=== PATIENT | male | born 1980 | race Caucasian/White ===

== ENCOUNTER 2018-02-09 | Emergency (ER) | payer BC ==
--- NOTE | 2018-02-09 16:33 | ER ---
Nurse's Notes [facility] Name: Ash Valdez Jr Age: 37 yrs Sex: Male : 1980 Arrival Date: 02/09/2018 Time: 16:16 Bed 16 Private MD: Diagnosis: Cellulitis of right lower limb Presentation: 02/09 16:18 Presenting complaint: Patient states: Abscess on RIGHT knee x 2 days. Transition of hb care: patient was not received from another setting of care. Onset of symptoms is unknown. Care prior to arrival: None. 16:18 Method Of Arrival: Ambulatory hb 16:18 Acuity: LIVAN 3 hb Historical: - Allergies: 16:20 Naproxen; hb - Home Meds: 16:20 Nexium Oral [Active]; hb - PMHx: 16:20 None; hb - PSHx: 16:20 Pelvis; hb - Immunization history:: Adult Immunizations up to date. - Social history:: Smoking status: Patient/guardian denies using tobacco. - Family history:: not pertinent. - Hospitalizations: : No recent hospitalization is reported. Screenin:25 Abuse screen: Denies threats or abuse. Nutritional screening: No deficits noted. rb1 Tuberculosis screening: No symptoms or risk factors identified. Fall Risk None identified. Assessment: 16:25 General: Appears in no apparent distress. comfortable, Behavior is calm, cooperative, rb1 Denies fever. Pain: Complains of pain in right leg Pain currently is 7 out of 10 on a pain scale. Neuro: Level of Consciousness is awake, alert, obeys commands, Oriented to person, place, time, situation. Cardiovascular: Capillary refill < 3 seconds is brisk in bilateral fingers. Respiratory: Airway is patent Respiratory effort is even, unlabored, Respiratory pattern is regular, symmetrical. GI: No signs and/or symptoms were reported involving the gastrointestinal system. : No signs and/or symptoms were reported regarding the genitourinary system. Derm: Skin is red, lateral side of right leg. Musculoskeletal: Range of motion: intact in all extremities. Vital Signs: 16:19 BP 135 / 88; Pulse 104; Resp 18; Temp 99.4; Pulse Ox 100% on R/A; Weight 122.11 kg (R); hb Height 5 ft. 9 in. (175.26 cm); Pain 10/10; 16:19 Body Mass Index 39.75 (122.11 kg, 175.26 cm) hb ED Course: 16:16 Patient arrived in ED. mr 16:18 Triage completed. hb 16:19 Arm band placed on right wrist. hb 16:23 Negrito Jain MD is Attending Physician. rn 16:25 Patient has correct armband on for positive identification. Bed in low position. Call rb1 light in reach. Side rails up X 1. Pulse ox on. NIBP on. 16:33 Chiquita Mena, RN is Primary Nurse. rb1 16:40 No provider procedures requiring assistance completed. Patient did not have IV access rb1 during this emergency room visit. Administered Medications: No medications were administered Outcome: 16:32 Discharge ordered by . rn 16:40 Discharged to home ambulatory. rb1 16:40 Condition: stable 16:40 Discharge instructions given to patient, Instructed on discharge instructions, follow up and referral plans. medication usage, Demonstrated understanding of instructions, follow-up care, medications, Prescriptions given X 3. 16:41 Patient left the ED. rb1 Signatures: Lizzy Jernigan Negrito Jain MD MD rn Chiquita Mena, RN RN rb1 Lilibeth Olsen RN RN hb
--- NOTE | 2018-02-09 16:33 | EDPHYS ---
Physician Documentation [facility] Name: Ash Valdez Jr Age: 37 yrs Sex: Male : 1980 Arrival Date: 02/09/2018 Time: 16:16 Bed 16 Private MD: ED Physician Negrito Jain HPI: 02/09 16:28 This 37 yrs old Male presents to ER via Ambulatory with complaints of rn cellulitis. 16:28 The patient presents with cellulitis of the right leg. Description: erythematous, hot, rn swollen. 16:29 Onset: The symptoms/episode began/occurred 2 day(s) ago. Severity of symptoms: At their rn worst the symptoms were mild, in the emergency department the symptoms are unchanged. The patient has experienced similar episodes in the past. Reports had boil to right leg 2 days ago, messed with it and popped it, + drained some pus, now swelling around the area with redness and warmth, no fever. Able to fully bend and flex knee. Ambulatory. . Historical: - Allergies: 16:20 Naproxen; hb - Home Meds: 16:20 Nexium Oral [Active]; hb - PMHx: 16:20 None; hb - PSHx: 16:20 Pelvis; hb - Immunization history:: Adult Immunizations up to date. - Social history:: Smoking status: Patient/guardian denies using tobacco. - Family history:: not pertinent. - Hospitalizations: : No recent hospitalization is reported. ROS: 16:29 Constitutional: Negative for fever, chills, and weight loss, Skin: + redness and rn swelling to right leg Exam: 16:29 Constitutional: This is a well developed, well nourished patient who is awake, alert, rn and in no acute distress. MS/ Extremity: Pulses equal, no cyanosis. Neurovascular intact. Full, normal range of motion. Equal circumference. Right proximal pre-tibial region with erythema and warmth, + induration without fluctuance. Vital Signs: 16:19 BP 135 / 88; Pulse 104; Resp 18; Temp 99.4; Pulse Ox 100% on R/A; Weight 122.11 kg (R); hb Height 5 ft. 9 in. (175.26 cm); Pain 10/10; 16:19 Body Mass Index 39.75 (122.11 kg, 175.26 cm) hb MDM: 16:23 Patient medically screened. rn 16:29 Differential diagnosis: cellulitis. Differential diagnosis: insect bite. Data reviewed: rn vital signs, nurses notes. Data reviewed: and as a result, I will discharge patient. Counseling: I had a detailed discussion with the patient and/or guardian regarding: the historical points, exam findings, and any diagnostic results supporting the discharge/admit diagnosis, the need for outpatient follow up, to return to the emergency department if symptoms worsen or persist or if there are any questions or concerns that arise at home. Special discussion: I discussed with the patient/guardian in detail that at this point there is no indication for admission to the hospital. It is understood, however, that if the symptoms persist or worsen the patient needs to return immediately for re-evaluation. Administered Medications: No medications were administered Disposition: 02/09/18 16:32 Discharged to Home. Impression: Cellulitis of right lower limb. - Condition is Stable. - Discharge Instructions: Cellulitis. - Prescriptions for Clindamycin HCl 300 mg Oral Capsule - take 1 capsule by ORAL route every 6 hours for 10 days; 40 capsule. Bactrim DS 800- 160 mg Oral Tablet - take 1 tablet by ORAL route every 12 hours for 10 days; 20 tablet. Ultram 50 mg Oral Tablet - take 1 tablet by ORAL route every 8 hours As needed; 15 tablet. - Medication Reconciliation Form, Thank You Letter, Antibiotic Education, Prescription Opioid Use form. - Follow up: Private Physician; When: As needed; Reason: Recheck today's complaints, Re-evaluation by your physician. - Problem is new. - Symptoms are unchanged. Signatures: Negrito Jain MD MD rn Barber, Rebecca RN JONAH [facility] Lilibeth Olsen RN RN
== END 2018-02-09 16:41 | disposition home or self-care (01) ==
CPT/HCPCS: 99283

== ENCOUNTER 2018-07-03 20:49 | Emergency (ER) | payer BC ==
[2018-07-03] MEDS ORDERED: BUPIVACAINE 0.5% PF 10 ML VIAL ONE (21:42)
--- NOTE | 2018-07-03 22:19 | ER ---
Nurse's Notes [facility] Name: Ash Valdez Jr Age: 38 yrs Sex: Male : 1980 Arrival Date: 07/03/2018 Time: 20:58 Bed 25 Private MD: Diagnosis: Cutaneous abscess of left axilla Presentation: 07/03 21:19 Presenting complaint: Patient states: Abscess to left arm pit for the past week. Denies aj1 drainage from abscess. Redness and swelling noted to left arm pit. Denies fever. Transition of care: patient was not received from another setting of care. Onset of symptoms was June 26, 2018. Risk Assessment: Do you want to hurt yourself or someone else? Patient reports no desire to harm self or others. Initial Sepsis Screen: Does the patient meet any 2 criteria? No. Patient's initial sepsis screen is negative. Does the patient have a suspected source of infection? No. Patient's initial sepsis screen is negative. Care prior to arrival: None. 21:19 Method Of Arrival: Ambulatory aj 21:19 Acuity: LIVAN 4 aj1 Triage Assessment: 21:18 General: Appears in no apparent distress. comfortable, Behavior is calm, cooperative, aj1 appropriate for age. Pain: Complains of pain in left axilla Pain currently is 10 out of 10 on a pain scale. 21:19 Neuro: Level of Consciousness is awake, alert, obeys commands. Cardiovascular: aj1 Patient's skin is warm and dry. Respiratory: Airway is patent Respiratory effort is even, unlabored, Respiratory pattern is regular, symmetrical. Historical: - Allergies: 21:18 Naproxen; aj1 - Home Meds: 21:18 Nexium Oral [Active]; aj1 - PMHx: 21:18 GERD; aj1 - PSHx: 21:18 eye surgery; plates and screws in pelvis; aj1 - Immunization history:: Flu vaccine is not up to date. - Social history:: Smoking status: Patient uses tobacco products, smokes one pack cigarettes per day. - Ebola Screening: : Patient denies travel to an Ebola-affected area in the 21 days before illness onset. Screenin:31 Abuse screen: Denies threats or abuse. Denies injuries from another. Nutritional rv screening: No deficits noted. Nutritional screening: No deficits noted. Tuberculosis screening: No symptoms or risk factors identified. Fall Risk None identified. Assessment: 22:00 General: Appears in no apparent distress. comfortable, Behavior is calm, cooperative. rv 22:00 Pain: Complains of pain in LEFT AXILLA. Neuro: Level of Consciousness is awake, alert, rv obeys commands, Oriented to person, place, time, situation. Cardiovascular: Capillary refill < 3 seconds. Respiratory: Airway is patent. GI: No signs and/or symptoms were reported involving the gastrointestinal system. : No signs and/or symptoms were reported regarding the genitourinary system. EENT: No signs and/or symptoms were reported regarding the EENT system. Derm: Skin has lesions on LEFT AXILLA. Musculoskeletal: No signs and/or symptoms reported regarding the musculoskeletal system. Vital Signs: 21:17 BP 133 / 76; Pulse 88; Resp 18; Temp 98.2; Pulse Ox 96% on R/A; Weight 129.27 kg; aj1 Height 5 ft. 9 in. (175.26 cm) (R); Pain 10/10; 21:17 Body Mass Index 42.09 (129.27 kg, 175.26 cm) aj1 ED Course: 20:58 Patient arrived in ED. es 21:19 Arm band placed on Patient placed in an exam room. aj1 21:20 Triage completed. aj1 21:21 Sanford Houser PA is PHCP. cp 21:21 Bruno Casas MD is Attending Physician. cp 22:31 Patient has correct armband on for positive identification. Bed in low position. Call rv light in reach. Side rails up X 1. Pulse ox on. NIBP on. 22:32 Assist provider with I \T\ D: of an abscess on Set up I\T\D tray. Performed by Sanford LAZO Culture sent to lab. Wound packed. iodoform gauze, Dressing with 4X4s, Patient tolerated well. 22:33 Patient did not have IV access during this emergency room visit. rv Administered Medications: 22:20 Drug: Clindamycin 600 mg Route: PO; rv 22:20 Follow up: Response: Medication administered at discharge. rv 22:20 Drug: Bactrim (160 mg-800 mg (DS) 1 tablet Route: PO; rv 22:20 Follow up: Response: Medication administered at discharge. rv Outcome: 22:18 Discharge ordered by . cp 22:32 Discharged to home ambulatory. rv 22:32 Condition: improved 22:32 Discharge instructions given to patient, Instructed on discharge instructions, follow up and referral plans. medication usage, Prescriptions given X 2. 22:35 Patient left the ED. rv Addendum: 07/08/2018 09:54 Addendum: Culture Results: Positive wound culture. Phone call Attempt #1 mailbox full. h b 10:41 Addendum: Culture Results: Positive wound culture. Prescription called-in to pharmacy h b of choice. Spoke to Joe. [facility]. Bactrim DS PO BID x 10 days. Signatures: Leticia Wilson RN RN aj1 Radha Ferreira Corey, PA PA cp Baxter, Heather, RN RN Eliazar Villarreal, RN RN rv
--- NOTE | 2018-07-03 22:19 | EDPHYS ---
Physician Documentation [facility] Name: Ash Valdez Jr Age: 38 yrs Sex: Male : 1980 Arrival Date: 07/03/2018 Time: 20:58 Bed 25 Private MD: ED Physician Bruno Casas HPI: 07/03 21:34 This 38 yrs old Male presents to ER via Ambulatory with complaints of Boil. cp 21:34 The patient presents with an abscess of the left axilla. Description: swollen. cp 21:34 Onset: The symptoms/episode began/occurred 1 week(s) ago. cp 21:34 Possible cause(s): unknown. Associated signs and symptoms: Pertinent negatives: cp discharge, drainage, fever. Historical: - Allergies: 21:18 Naproxen; aj1 - Home Meds: 21:18 Nexium Oral [Active]; aj1 - PMHx: 21:18 GERD; aj1 - PSHx: 21:18 eye surgery; plates and screws in pelvis; aj1 - Immunization history:: Flu vaccine is not up to date. - Social history:: Smoking status: Patient uses tobacco products, smokes one pack cigarettes per day. - Ebola Screening: : Patient denies travel to an Ebola-affected area in the 21 days before illness onset. ROS: 21:40 Constitutional: Negative for body aches, chills, fever, poor PO intake. cp 21:40 Eyes: Negative for injury, pain, redness, and discharge. cp 21:40 ENT: Negative for drainage from ear(s), ear pain, sore throat, difficulty swallowing, difficulty handling secretions. 21:40 Cardiovascular: Negative for chest pain. 21:40 Respiratory: Negative for cough, shortness of breath, wheezing. 21:40 Abdomen/GI: Negative for abdominal pain, nausea, vomiting, and diarrhea. 21:40 Skin: Positive for abscess, of the left axilla. 21:40 All other systems are negative. Exam: 21:40 Head/Face: Normocephalic, atraumatic. cp 21:40 Constitutional: The patient appears in no acute distress, alert, awake, non-toxic, well developed, well nourished. 21:40 Eyes: Periorbital structures: appear normal, Conjunctiva: normal, no exudate, no injection, Lids and lashes: appear normal, bilaterally. 21:40 ENT: External ear(s): are unremarkable, Nose: is normal, Mouth: Lips: moist, Oral mucosa: moist, Posterior pharynx: is normal, airway is patent. 21:40 Chest/axilla: Axilla: abscess, that is moderate in size, of the left axilla, mild surrounding erythema. 21:40 Cardiovascular: Rate: normal, Rhythm: regular. 21:40 Respiratory: the patient does not display signs of respiratory distress, Respirations: normal, no use of accessory muscles, no retractions, no splinting, no tachypnea, Breath sounds: are clear throughout, no decreased breath sounds, no stridor, no wheezing. Vital Signs: 21:17 BP 133 / 76; Pulse 88; Resp 18; Temp 98.2; Pulse Ox 96% on R/A; Weight 129.27 kg; aj1 Height 5 ft. 9 in. (175.26 cm) (R); Pain 10/10; 21:17 Body Mass Index 42.09 (129.27 kg, 175.26 cm) [facility] Procedures: 22:16 I \T\ D: Incision and drainage was performed for an abscess of the left axilla. Prepped cp with Betadine, Anesthetized with 5 ml's 1% Lidocaine w/ Epi. 5 ccs of 0.5 marcaine. Incised with #11 blade. Drained small amount purulent fluid. Cultures obtained. Abscess cavity explored. Packed with iodoform gauze, Dressing: sterile 4x4 gauze, the patient tolerated the procedure well. MDM: 21:21 Patient medically screened. cp 22:00 Differential diagnosis: abscess, allergic reaction, cellulitis, insect bite. cp 22:17 Data reviewed: vital signs, nurses notes, and as a result, I will discharge patient. cp 22:17 Counseling: I had a detailed discussion with the patient and/or guardian regarding: the cp historical points, exam findings, and any diagnostic results supporting the discharge/admit diagnosis, lab results, the need for outpatient follow up, a family practitioner, to return to the emergency department if symptoms worsen or persist or if there are any questions or concerns that arise at home. 22:17 Response to treatment: the patient's symptoms have markedly improved after treatment, cp and as a result, I will discharge patient. 07/03 22:10 Order name: Wound Culture cp 07/03 21:33 Order name: I\T\D Setup; Complete Time: 21:37 cp 07/03 22:10 Order name: Wound dressing; Complete Time: 22:20 cp Administered Medications: 22:20 Drug: Clindamycin 600 mg Route: PO; rv 22:20 Follow up: Response: Medication administered at discharge. rv 22:20 Drug: Bactrim (160 mg-800 mg (DS) 1 tablet Route: PO; rv 22:20 Follow up: Response: Medication administered at discharge. rv Disposition: 07/04 00:32 Co-signature as Attending Physician, Bruno Casas MD. Disposition: 07/03/18 22:18 Discharged to Home. Impression: Cutaneous abscess of left axilla. - Condition is Stable. - Discharge Instructions: Skin Abscess, Incision and Drainage. - Prescriptions for Clindamycin HCl 300 mg Oral Capsule - take 1 capsule by ORAL route every 6 hours for 10 days; 40 capsule. Tramadol 50 mg Oral Tablet - take 1 tablet by ORAL route every 8 hours as needed; 15 tablet. Bactrim DS 800- 160 mg Oral Tablet - take 1 tablet by ORAL route every 12 hours for 10 days; 20 tablet. - Medication Reconciliation Form, Thank You Letter, Antibiotic Education, Prescription Opioid Use form. - Work release form (07/03/18 22:42). rv - Follow up: Private Physician; When: 48 Hours; Reason: Wound Recheck. - Problem is new. - Symptoms have improved. Signatures: Dispatcher [employer] Leticia Mosley RN RN aj1 Sanford Houser PA PA cp Bruno Casas MD MD Eliazar Villarreal RN RN rv Corrections: (The following items were deleted from the chart) 07/03 21:36 21:34 Onset: The symptoms/episode began/occurred 3 day(s) ago, cp cp 22:35 22:18 07/03/2018 22:18 Discharged to Home. Impression: Cutaneous abscess of left rv axilla. Condition is Stable. Forms are Medication Reconciliation Form, Thank You Letter, Antibiotic Education, Prescription Opioid Use. Follow up: Private Physician; When: 48 Hours; Reason: Wound Recheck. Problem is new. Symptoms have improved. cp
[2018-07-03] MEDS ORDERED: SMZ./TMP. 800/160 MG TABLET ONE (22:21)
[2018-07-03] MEDS ORDERED: CLINDAMYCIN HCL 150 MG CAP ONE (22:22)
== END 2018-07-03 22:35 | disposition home or self-care (01) ==
LOC: ER 20:49
PROC: 0J9F0ZZ Drainage of Left Upper Arm Subcutaneous Tissue and Fascia, Open Approach (ICD-10-PCS; principal; 2018-07-03)
DX: L02.412 Cutaneous abscess of left axilla (principal); Z88.8 Allergy status to other drugs, medicaments and biological substances; K21.9 Gastro-esophageal reflux disease without esophagitis; F17.220 Nicotine dependence, chewing tobacco, uncomplicated
CPT/HCPCS: 87070; 87077; 87186; 87205; 99284

== ENCOUNTER 2018-09-24 19:24 | Emergency (ER) | payer BC, SELFPAY ==
[2018-09-24] MEDS ORDERED: LIDOCAINE 1% MPF 30 ML VIAL ONE (20:08)
--- NOTE | 2018-09-24 21:13 | ER ---
Nurse's Notes [facility] Name: Ash Valdez Jr Age: 38 yrs Sex: Male : 1980 Arrival Date: 09/24/2018 Time: 19:28 Bed 14 Private MD: Diagnosis: Abscess left knee Presentation: 09/24 19:38 Presenting complaint: Patient states: "I got a boil on my leg, it hurts, it red and its aj1 swollen." Reports abscess to left knee. Transition of care: patient was not received from another setting of care. Onset of symptoms was September 22, 2018. Risk Assessment: Do you want to hurt yourself or someone else? Patient reports no desire to harm self or others. Initial Sepsis Screen: Does the patient meet any 2 criteria? HR > 90 bpm. No. Patient's initial sepsis screen is negative. Does the patient have a suspected source of infection? Yes: Skin breakdown/wound. Care prior to arrival: None. 19:38 Method Of Arrival: Ambulatory aj1 19:38 Acuity: LIVAN 4 aj1 Triage Assessment: 19:41 General: Appears in no apparent distress. comfortable, Behavior is calm, cooperative, aj1 appropriate for age. Pain: Complains of pain in left knee. Neuro: Level of Consciousness is awake, alert, obeys commands. Cardiovascular: Patient's skin is warm and dry. Respiratory: Airway is patent Respiratory effort is even, unlabored, Respiratory pattern is regular, symmetrical. Historical: - Allergies: 19:41 Naproxen; aj1 - Home Meds: 19:41 Nexium Oral [Active]; aj1 - PMHx: 19:41 GERD; aj1 - Immunization history:: Flu vaccine is not up to date. - Social history:: Smoking status: Patient uses tobacco products, smokes one pack cigarettes per day. - Ebola Screening: : Patient denies travel to an Ebola-affected area in the 21 days before illness onset. Screenin:17 Abuse screen: Denies threats or abuse. Denies injuries from another. Nutritional lp1 screening: No deficits noted. Tuberculosis screening: No symptoms or risk factors identified. Fall Risk None identified. Assessment: 20:16 General: Appears in no apparent distress. Behavior is appropriate for age. Pain: lp1 Complains of pain in left knee Pain currently is 8 out of 10 on a pain scale. Aggravated by repositioning. Neuro: Level of Consciousness is awake, alert, obeys commands. Cardiovascular: Patient's skin is warm and dry. Respiratory: No deficits noted. GI: No deficits noted. : No deficits noted. EENT: No deficits noted. Derm: Skin is healthy with good turgor, Skin is dry, Skin is normal, Abscess located on left knee is half dollar sized, has purulent drainage, is hot to touch, is red. Musculoskeletal: Circulation, motion, and sensation intact. Vital Signs: 19:41 BP 127 / 78; Pulse 98; Resp 18; Temp 97.2; Pulse Ox 96% on R/A; Weight 129.27 kg (R); aj1 Height 5 ft. 9 in. (175.26 cm) (R); Pain 8/10; 19:41 Body Mass Index 42.09 (129.27 kg, 175.26 cm) aj1 ED Course: 19:28 Patient arrived in ED. al2 19:40 Triage completed. aj1 19:41 Arm band placed on Patient placed in an exam room. aj1 19:49 Flaco Pruitt MD is Attending Physician. pkl 19:53 Yanna Ruvalcaba RN is Primary Nurse. lp1 20:19 Patient has correct armband on for positive identification. lp1 21:05 Assist provider with I \\T\\ D: of an abscess on Left knee Set up I\\T\\D tray. Performed by lp 1 Flaco Pruitt MD Culture sent to lab. Wound packed. iodoform gauze, Dressing with 4X4s, DEANDRE bandage. 21:17 Patient did not have IV access during this emergency room visit. lp1 Administered Medications: 21:05 Drug: Lidocaine (1 %) 1 vials Volume: 20 ml; Route: Infiltration; lp1 21:25 Drug: Ancef 1 grams Route: IM; Site: left gluteus; lp1 21:40 Follow up: Response: No adverse reaction lp1 Outcome: 21:12 Discharge ordered by . pkl 21:40 Discharged to home ambulatory, with significant other. lp1 21:40 Condition: good 21:40 Discharge instructions given to patient, Instructed on discharge instructions, follow up and referral plans. medication usage, wound care, Demonstrated understanding of instructions, follow-up care, medications, wound care, Prescriptions given X 1. 21:40 Patient left the ED. lp1 Addendum: 09/28/2018 08:27 Addendum: Culture Results: Positive wound culture. No further action required. Bacteria i w sensitive to prescribed antibiotic. Signatures: Leticia Wilson RN RN aj1 Flaco Pruitt MD MD pkl Alyce Nava RN RN iw Yanna Ruvalcaba RN RN lp1 Evelyne Mcgowan Corrections: (The following items were deleted from the chart) 09/24 21:55 21:55 Patient left the ED. lp1 lp1
--- NOTE | 2018-09-24 21:13 | EDPHYS ---
Physician Documentation [facility] Name: Ash Valdez Jr Age: 38 yrs Sex: Male : 1980 Arrival Date: 09/24/2018 Time: 19:28 Bed 14 Private MD: ED Physician Flaco Pruitt HPI: 09/24 19:56 This 38 yrs old Male presents to ER via Ambulatory with complaints of Leg pkl Pain, Leg Swelling, Insect Bite. 19:56 The patient presents with an abscess of the left knee. Description: The affected area pkl is moderate sized, approximately 3 cm(s), erythematous, fluctuant, tense. Onset: The symptoms/episode began/occurred 2 day(s) ago. Historical: - Allergies: 19:41 Naproxen; aj1 - Home Meds: 19:41 Nexium Oral [Active]; aj1 - PMHx: 19:41 GERD; aj1 - Immunization history:: Flu vaccine is not up to date. - Social history:: Smoking status: Patient uses tobacco products, smokes one pack cigarettes per day. - Ebola Screening: : Patient denies travel to an Ebola-affected area in the 21 days before illness onset. ROS: 19:56 Eyes: Negative for injury, pain, redness, and discharge, ENT: Negative for injury, pkl pain, and discharge, Neck: Negative for injury, pain, and swelling, Cardiovascular: Negative for chest pain, palpitations, and edema, Respiratory: Negative for shortness of breath, cough, wheezing, and pleuritic chest pain, Abdomen/GI: Negative for abdominal pain, nausea, vomiting, diarrhea, and constipation, Back: Negative for injury and pain, : Negative for injury, bleeding, discharge, and swelling, Neuro: Negative for headache, weakness, numbness, tingling, and seizure. 19:56 MS/extremity: Positive for pain, swelling, of the left knee. 19:56 Skin: Positive for abscess, of the left knee. Exam: 19:56 Head/Face: Normocephalic, atraumatic. Eyes: Pupils equal round and reactive to light, pkl extra-ocular motions intact. Lids and lashes normal. Conjunctiva and sclera are non-icteric and not injected. Cornea within normal limits. Periorbital areas with no swelling, redness, or edema. ENT: Nares patent. No nasal discharge, no septal abnormalities noted. Tympanic membranes are normal and external auditory canals are clear. Oropharynx with no redness, swelling, or masses, exudates, or evidence of obstruction, uvula midline. Mucous membranes moist. Neck: Trachea midline, no thyromegaly or masses palpated, and no cervical lymphadenopathy. Supple, full range of motion without nuchal rigidity, or vertebral point tenderness. No Meningismus. Chest/axilla: Normal chest wall appearance and motion. Nontender with no deformity. No lesions are appreciated. Cardiovascular: Regular rate and rhythm with a normal S1 and S2. No gallops, murmurs, or rubs. Normal PMI, no JVD. No pulse deficits. Respiratory: Lungs have equal breath sounds bilaterally, clear to auscultation and percussion. No rales, rhonchi or wheezes noted. No increased work of breathing, no retractions or nasal flaring. Abdomen/GI: Soft, non-tender, with normal bowel sounds. No distension or tympany. No guarding or rebound. No evidence of tenderness throughout. Back: No spinal tenderness. No costovertebral tenderness. Full range of motion. Neuro: Awake and alert, GCS 15, oriented to person, place, time, and situation. Cranial nerves II-XII grossly intact. Motor strength 5/5 in all extremities. Sensory grossly intact. Cerebellar exam normal. Normal gait. 19:56 Skin: abscess, that is moderate sized, approximately 3 cm(s), of the left knee, with fluctuance, that is moderate. Vital Signs: 19:41 BP 127 / 78; Pulse 98; Resp 18; Temp 97.2; Pulse Ox 96% on R/A; Weight 129.27 kg (R); aj1 Height 5 ft. 9 in. (175.26 cm) (R); Pain 8/10; 19:41 Body Mass Index 42.09 (129.27 kg, 175.26 cm) aj1 Procedures: 21:09 I \T\ D: Incision and drainage was performed for an abscess of the left knee Prepped with pkl Betadine, Anesthetized with 3 ml's 1% Lidocaine. Incised with #11 blade. Drained moderate amount purulent fluid. Packed with iodoform gauze, Dressing: sterile 4x4 gauze, the patient tolerated the procedure well. MDM: 19:49 Patient medically screened. pkl 21:09 Data reviewed: vital signs, nurses notes. pkl 09/24 20:28 Order name: Wound Culture lp1 09/24 20:28 Order name: I\T\D Setup; Complete Time: 21:17 lp1 Administered Medications: 21:05 Drug: Lidocaine (1 %) 1 vials Volume: 20 ml; Route: Infiltration; lp1 21:25 Drug: Ancef 1 grams Route: IM; Site: left gluteus; lp1 21:40 Follow up: Response: No adverse reaction lp1 Disposition: 09/24/18 21:12 Discharged to Home. Impression: Abscess left knee. - Condition is Stable. - Prescriptions for Bactrim DS 800- 160 mg Oral Tablet - take 1 tablet by ORAL route every 12 hours for 10 days; 20 tablet. - Work release form, Medication Reconciliation Form, Thank You Letter, Antibiotic Education, Prescription Opioid Use form. - Follow up: Private Physician; When: 2 - 3 days; Reason: Re-evaluation by your physician. - Problem is new. - Symptoms have improved. Signatures: Dispatcher [employer] EDLeticia Zurita RN RN aj1 Flaco Pruitt MD MD pkl Yanna Ruvalcaba RN RN lp1 Corrections: (The following items were deleted from the chart) 21:55 21:12 09/24/2018 21:12 Discharged to Home. Impression: Abscess left knee. Condition is lp1 Stable. Forms are Medication Reconciliation Form, Thank You Letter, Antibiotic Education, Prescription Opioid Use. Follow up: Private Physician; When: 2 - 3 days; Reason: Re-evaluation by your physician. Problem is new. Symptoms have improved. pkl
[2018-09-24] MEDS ORDERED: WATER FOR INJ,STERILE 10 ML ONE (21:27)
[2018-09-24] MEDS ORDERED: CEFAZOLIN SODIUM 1 GM/VIAL ONE (21:27)
== END 2018-09-24 21:55 | disposition home or self-care (01) ==
LOC: ER 19:24
DX: L02.416 Cutaneous abscess of left lower limb (principal); F17.210 Nicotine dependence, cigarettes, uncomplicated
CPT/HCPCS: 87070; 87077; 87186; 87205; 96372; 99284; J0690

== ENCOUNTER 2018-11-18 20:32 | Emergency (ER) | payer SELFPAY ==
--- NOTE | 2018-11-18 21:14 | RAD REPORT ---
EXAM DESCRIPTION: RAD - Hand Right 3 View - 11/18/2018 9:08 pm CLINICAL HISTORY: SMASH INJURY Trauma COMPARISON: No comparisons FINDINGS: Fracture is seen involving the right fifth metacarpal neck compatible with a boxer's fract ure. No dislocation evident.
--- NOTE | 2018-11-18 22:13 | ER ---
Nurse's Notes [facility] Name: Ash Valdez Jr Age: 38 yrs Sex: Male : 1980 Arrival Date: 11/18/2018 Time: 20:41 Bed 24 Private MD: Diagnosis: Nondisplaced fracture of neck of fifth metacarpal bone, right hand Presentation: 11/18 20:44 Presenting complaint: Patient states: Report that he was punching a piece of wooden aj1 furniture and now he is having pain to his right hand. Transition of care: patient was not received from another setting of care. Onset of symptoms was November 18, 2018 at 08:00. Risk Assessment: Do you want to hurt yourself or someone else? Patient reports no desire to harm self or others. Initial Sepsis Screen: Does the patient meet any 2 criteria? No. Patient's initial sepsis screen is negative. Does the patient have a suspected source of infection? No. Patient's initial sepsis screen is negative. Care prior to arrival: None. 20:44 Method Of Arrival: Ambulatory aj 20:44 Acuity: ILVAN 4 aj1 Triage Assessment: 20:46 General: Appears in no apparent distress. comfortable, Behavior is calm, cooperative, aj1 appropriate for age. Pain: Complains of pain in dorsal aspect of proximal phalanx of right little finger Pain currently is 3 out of 10 on a pain scale. Neuro: Level of Consciousness is awake, alert, obeys commands. Cardiovascular: Patient's skin is warm and dry. Respiratory: Airway is patent Respiratory effort is even, unlabored, Respiratory pattern is regular, symmetrical. Historical: - Allergies: 20:46 Naproxen; aj1 - Home Meds: 20:46 Omeprazole Oral [Active]; aj1 - PMHx: 20:46 GERD; aj1 - Immunization history:: Flu vaccine is up to date. - Social history:: Smoking status: Patient uses tobacco products, denies chronic smoking, but will smoke occasionally. - Ebola Screening: : Patient denies travel to an Ebola-affected area in the 21 days before illness onset. Screenin:59 Abuse screen: Denies threats or abuse. Denies injuries from another. Nutritional ed1 screening: No deficits noted. Tuberculosis screening: No symptoms or risk factors identified. Fall Risk None identified. Assessment: 21:43 Reassessment: Patient appears in no apparent distress at this time. No changes from ed1 previously documented assessment. Patient and/or family updated on plan of care and expected duration. Pain level reassessed. Patient is alert, oriented x 3, equal unlabored respirations, skin warm/dry/pink. Patient states symptoms have not improved. Vital Signs: 20:46 BP 122 / 74; Pulse 73; Resp 18; Temp 98.4; Pulse Ox 96% on R/A; Weight 129.27 kg (R); aj1 Height 5 ft. 9 in. (175.26 cm) (R); Pain 3/10; 21:43 BP 121 / 71; Pulse 72; Resp 18; Pulse Ox 100% on R/A; Pain 3/10; ed1 20:46 Body Mass Index 42.09 (129.27 kg, 175.26 cm) aj1 ED Course: 20:41 Patient arrived in ED. am2 20:45 Triage completed. aj1 20:46 Arm band placed on Patient placed in an exam room. aj1 20:49 Joe Tenorio MD is Attending Physician. tw4 20:56 Deonna Kenny LVN is Primary Nurse. ed1 20:59 Patient has correct armband on for positive identification. Bed in low position. Call ed1 light in reach. Adult w/ patient. 21:05 Hand Right 3 View XRAY In Process Unspecified. EDMS 22:00 Segundo wrap to right wrist Orthoglass splint: Ulnar gutter/Boxer splint applied on right jp3 forearm. 22:29 Primary Nurse role handed off by Deonna Kenny LVN ed1 22:42 No provider procedures requiring assistance completed. Patient did not have IV access mg2 during this emergency room visit. Administered Medications: No medications were administered Outcome: 22:13 Discharge ordered by . tw4 22:42 Discharged to home ambulatory, with family. mg2 22:42 Condition: stable 22:42 Discharge instructions given to patient, family, Instructed on discharge instructions, follow up and referral plans. medication usage, Demonstrated understanding of instructions, follow-up care, medications, Prescriptions given X 1. 22:43 Patient left the ED. mg2 Signatures: Dispatcher [employer] EDGA Leticia Wilson RN RN aj1 Deonna Kenny LVN LVN ed1 Kierra Odonnell am2 Joe Tenorio MD MD tw4 Billy Daniel, JONAH RN mg2 Elias Valle jp3
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
== END 2018-11-18 22:43 | disposition home or self-care (01) ==
LOC: ER 20:32
PROC: 2W3CX1Z Immobilization of Right Lower Arm using Splint (ICD-10-PCS; principal; 2018-11-18)
DX: S62.366A Nondisplaced fracture of neck of fifth metacarpal bone, right hand, initial encounter for closed fracture (principal); W22.8XXA Striking against or struck by other objects, initial encounter; Y92.009 Unspecified place in unspecified non-institutional (private) residence as the place of occurrence of the external cause; Z72.0 Tobacco use
CPT/HCPCS: 99283

== ENCOUNTER 2020-04-07 07:49 | Emergency (ER) | payer SELFPAY ==
--- NOTE | 2020-04-07 08:03 | ER ---
Nurse's Notes [facility] Name: Ash Valdez Jr Age: 39 yrs Sex: Male : 1980 Arrival Date: 04/07/2020 Time: 07:51 Bed 7 Private MD: Diagnosis: Uvulitis Presentation: 04/07 07:59 Chief complaint: Patient states: I THINK MY UVULA'S SWOLLEN. Coronavirus screen: bp Proceed with normal triage. Ebola Screen: No symptoms or risks identified at this time. Initial Sepsis Screen: Does the patient meet any 2 criteria? No. Patient's initial sepsis screen is negative. Does the patient have a suspected source of infection? No. Patient's initial sepsis screen is negative. Risk Assessment: Do you want to hurt yourself or someone else? Patient reports no desire to harm self or others. Onset of symptoms was April 07, 2020 at 05:00. 07:59 Method Of Arrival: Ambulatory bp 07:59 Acuity: LIVAN 3 bp Triage Assessment: 08:01 General: Appears in no apparent distress. comfortable, obese, Behavior is calm, bp cooperative, appropriate for age. Pain: Denies pain. EENT: Throat UVULA ENLARGED. Neuro: No deficits noted. Cardiovascular: No deficits noted. Respiratory: Airway is patent Respiratory effort is even, unlabored. GI: No signs and/or symptoms were reported involving the gastrointestinal system. : No signs and/or symptoms were reported regarding the genitourinary system. Derm: No deficits noted. Musculoskeletal: No deficits noted. Historical: - Allergies: 08:01 Naproxen; bp - Home Meds: 08:01 Omeprazole Oral [Active]; bp - PMHx: 08:01 GERD; bp - Immunization history:: Adult Immunizations unknown. - Social history:: Smoking status: Patient denies any tobacco usage or history of. - Family history:: not pertinent. - Hospitalizations: : No recent hospitalization is reported. Screenin:02 Abuse screen: Denies threats or abuse. Denies injuries from another. Nutritional bp screening: No deficits noted. Tuberculosis screening: No symptoms or risk factors identified. Fall Risk None identified. Assessment: 08:02 General: SEE TRIAGE NOTE. Respiratory: Airway is patent Breath sounds are clear bp bilaterally. 08:19 Reassessment: PT D/C HOME AMBULATORY, DX WITH UVULITIS. bp Vital Signs: 07:59 BP 125 / 83; Pulse 76; Resp 16; Temp 97.9; Pulse Ox 100% ; Weight 136.08 kg; Height 5 bp ft. 9 in. (175.26 cm); 08:19 BP 128 / 84; Pulse 80; Resp 16; Temp 98; Pulse Ox 98% ; bp 07:59 Body Mass Index 44.30 (136.08 kg, 175.26 cm) bp ED Course: 07:51 Patient arrived in ED. as 07:53 Negrito Jain MD is Attending Physician. rn 07:53 Aden Coulter, RN is Primary Nurse. bp 07:59 Triage completed. bp 08:01 Arm band placed on. bp 08:02 Patient has correct armband on for positive identification. Bed in low position. Call bp light in reach. Side rails up X2. 08:20 No provider procedures requiring assistance completed. Patient did not have IV access bp during this emergency room visit. Administered Medications: 08:15 Drug: predniSONE 60 mg Route: PO; bp 08:19 Follow up: Response: No adverse reaction bp Outcome: 08:02 Discharge ordered by . rn 08:20 Discharged to home ambulatory. bp 08:20 Condition: stable 08:20 Discharge instructions given to patient, Instructed on discharge instructions, follow up and referral plans. medication usage, Demonstrated understanding of instructions, follow-up care, medications, Prescriptions given X 2. 08:21 Patient left the ED. bp Signatures: Clara James Roman, MD MD rn Aden Coulter, RN RN bp
--- NOTE | 2020-04-07 08:03 | EDPHYS ---
Physician Documentation [facility] Name: Ash Valdez Jr Age: 39 yrs Sex: Male : 1980 Arrival Date: 04/07/2020 Time: 07:51 Bed 7 Private MD: ED Physician Negrito Jain HPI: 04/07 07:58 This 39 yrs old Male presents to ER via Unassigned with complaints of Sore rn Throat. 07:58 The patient presents with sore throat. The patient describes throat pain as dry. Onset: rn The symptoms/episode began/occurred this morning. Severity of symptoms: At their worst the symptoms were mild, in the emergency department the symptoms are unchanged. Modifying factors: The symptoms are alleviated by nothing, the symptoms are aggravated by swallowing. The patient has not experienced similar symptoms in the past. The patient has not recently seen a physician. Reports went to bed feeling fine, woke up feeling sore throat and like uvula is swollen. Not much pain. no fever. No trauma. No new exposure or possible allergic reaction. . Historical: - Allergies: 08:01 Naproxen; bp - Home Meds: 08:01 Omeprazole Oral [Active]; bp - PMHx: 08:01 GERD; bp - Immunization history:: Adult Immunizations unknown. - Social history:: Smoking status: Patient denies any tobacco usage or history of. - Family history:: not pertinent. - Hospitalizations: : No recent hospitalization is reported. ROS: 07:58 Constitutional: Negative for fever, chills, and weight loss, Eyes: Negative for injury, rn pain, redness, and discharge, ENT: + sore throat Neck: Negative for injury, pain, and swelling, Cardiovascular: Negative for chest pain, palpitations, and edema, Respiratory: Negative for shortness of breath, cough, wheezing, and pleuritic chest pain, Abdomen/GI: Negative for abdominal pain, nausea, vomiting, diarrhea, and constipation, MS/Extremity: Negative for injury and deformity, Neuro: Negative for headache, weakness, numbness, tingling, and seizure. Exam: 07:58 Constitutional: This is a well developed, well nourished patient who is awake, alert, rn and in no acute distress. Ambulatory to room without distress or assistance. Head/Face: Normocephalic, atraumatic. Eyes: Pupils equal round and reactive to light, extra-ocular motions intact. Lids and lashes normal. Conjunctiva and sclera are non-icteric and not injected. Cornea within normal limits. Periorbital areas with no swelling, redness, or edema. ENT: + mild swelling of uvula, midline, no pooling of secretions, no tongue swelling, no stridor Respiratory: No increased work of breathing, no retractions or nasal flaring. Skin: Warm, dry, crusty linear rash along nape of neck, no rash on extremities. MS/ Extremity: Pulses equal, no cyanosis. Neurovascular intact. Full, normal range of motion. Equal circumference. Neuro: Awake and alert, GCS 15, Normal gait. Vital Signs: 07:59 BP 125 / 83; Pulse 76; Resp 16; Temp 97.9; Pulse Ox 100% ; Weight 136.08 kg; Height 5 bp ft. 9 in. (175.26 cm); 08:19 BP 128 / 84; Pulse 80; Resp 16; Temp 98; Pulse Ox 98% ; bp 07:59 Body Mass Index 44.30 (136.08 kg, 175.26 cm) bp MDM: 07:53 Patient medically screened. rn 07:58 Differential diagnosis: uvulitis, viral syndrome, pharyngitis. Data reviewed: vital rn signs, nurses notes, and as a result, I will discharge patient. Counseling: I had a detailed discussion with the patient and/or guardian regarding: the historical points, exam findings, and any diagnostic results supporting the discharge/admit diagnosis, the need for outpatient follow up, to return to the emergency department if symptoms worsen or persist or if there are any questions or concerns that arise at home. Special discussion: I discussed with the patient/guardian in detail that at this point there is no indication for admission to the hospital. It is understood, however, that if the symptoms persist or worsen the patient needs to return immediately for re-evaluation. Administered Medications: 08:15 Drug: predniSONE 60 mg Route: PO; bp 08:19 Follow up: Response: No adverse reaction bp Disposition: 04/07/20 08:02 Discharged to Home. Impression: Uvulitis. - Condition is Stable. - Discharge Instructions: Sore Throat, Uvulitis. - Prescriptions for Augmentin 875- 125 mg Oral Tablet - take 1 tablet by ORAL route every 12 hours for 10 days; 20 tablet. Medrol (Jimmy) 4 mg Oral Tablets, Dose Pack - take 1 tablet by ORAL route as directed - follow package instructions; 1 packet. - Medication Reconciliation Form, Thank You Letter, Antibiotic Education, Prescription Opioid Use form. - Follow up: Private Physician; When: As needed; Reason: Recheck today's complaints, Re-evaluation by your physician. - Problem is new. - Symptoms are unchanged. Signatures: Negrito Jain MD MD rn Peltier, Brian, RN RN bp Corrections: (The following items were deleted from the chart) 08:21 08:02 04/07/2020 08:02 Discharged to Home. Impression: Uvulitis. Condition is Stable. bp Forms are Medication Reconciliation Form, Thank You Letter, Antibiotic Education, Prescription Opioid Use. Follow up: Private Physician; When: As needed; Reason: Recheck today's complaints, Re-evaluation by your physician. Problem is new. Symptoms are unchanged. rn
[2020-04-07] MEDS ORDERED: predniSONE 20 MG TAB ONE (08:15)
[2020-04-07 09:11] VITALS: BP 128/84; TEMP 98; O2SAT 98
== END 2020-04-07 08:21 | disposition home or self-care (01) ==
LOC: ER 07:49
DX: K12.2 Cellulitis and abscess of mouth (principal); K21.9 Gastro-esophageal reflux disease without esophagitis
CPT/HCPCS: 99283; J7512

== ENCOUNTER 2020-08-14 05:56 | Emergency (ER) | payer SELFPAY ==
--- NOTE | 2020-08-14 06:58 | EDPHYS ---
Physician Documentation [facility] Name: Ash Valdez Jr Age: 40 yrs Sex: Male : 1980 Arrival Date: 08/14/2020 Time: 05:58 Bed 7 Private MD: ED Physician Joe Tenorio HPI: 08/14 06:26 This 40 yrs old Male presents to ER via Ambulatory with complaints of kb Shortness Of Breath. 06:26 The patient has not experienced similar symptoms in the past. The patient has not kb recently seen a physician. 06:26 The patient or guardian reports cough, that is intermittent, described as mild, with no kb sputum, difficulty breathing, flu symptoms, myalgias. Onset: The symptoms/episode began/occurred yesterday. Severity of symptoms: At their worst the symptoms were mild, in the emergency department the symptoms are unchanged. Modifying factors: The symptoms are alleviated by dayquil the symptoms are aggravated by nothing. Associated signs and symptoms: The patient has no apparent associated signs or symptoms. Pt reports he has had shortness of breath since yesterday with body aches and woke up with chills this morning. Reports dry cough since yesterday that is relieved with dayquil. States "I just wanted to make sure I didn't have COVID before I went to work.". Historical: - Allergies: 06:13 Naproxen; bb - Home Meds: 06:13 Omeprazole Oral [Active]; bb - PMHx: 06:13 GERD; bb - PSHx: 06:13 eye surgery; pelvis surgery; bb - Immunization history:: Adult Immunizations up to date. - Social history:: Smoking status: Patient reports the use of cigarette tobacco products, denies chronic smoking, but will smoke occasionally, Patient/guardian denies using alcohol, street drugs. ROS: 06:28 ENT: Negative for injury, pain, and discharge, Neck: Negative for injury, pain, and kb swelling, Cardiovascular: Negative for chest pain, palpitations, and edema, Abdomen/GI: Negative for abdominal pain, nausea, vomiting, diarrhea, and constipation, Back: Negative for injury and pain, MS/Extremity: Negative for injury and deformity, Skin: Negative for injury, rash, and discoloration, Neuro: Negative for headache, weakness, numbness, tingling, and seizure. 06:28 Constitutional: Positive for body aches, chills, malaise, Negative for fatigue, fever, poor PO intake, weight loss. 06:28 Respiratory: Positive for cough, shortness of breath. Exam: 06:28 Constitutional: This is a well developed, well nourished patient who is awake, alert, kb and in no acute distress. Head/Face: Normocephalic, atraumatic. Chest/axilla: Normal chest wall appearance and motion. Nontender with no deformity. No lesions are appreciated. Cardiovascular: Regular rate and rhythm with a normal S1 and S2. No gallops, murmurs, or rubs. Normal PMI, no JVD. No pulse deficits. Respiratory: Lungs have equal breath sounds bilaterally, clear to auscultation and percussion. No rales, rhonchi or wheezes noted. No increased work of breathing, no retractions or nasal flaring. Abdomen/GI: Soft, non-tender, with normal bowel sounds. No distension or tympany. No guarding or rebound. No evidence of tenderness throughout. Skin: Warm, dry with normal turgor. Normal color with no rashes, no lesions, and no evidence of cellulitis. MS/ Extremity: Pulses equal, no cyanosis. Neurovascular intact. Full, normal range of motion. Neuro: Awake and alert, GCS 15, oriented to person, place, time, and situation. Cranial nerves II-XII grossly intact. Motor strength 5/5 in all extremities. Sensory grossly intact. Cerebellar exam normal. Normal gait. Vital Signs: 06:10 BP 122 / 73; Pulse 79; Resp 18 S; Temp 98.4(O); Pulse Ox 96% on R/A; Weight 154.22 kg bb (R); Height 5 ft. 9 in. (175.26 cm) (R); Pain 2/10; 07:03 BP 127 / 86; Pulse 77; Resp 17; Pulse Ox 97% on R/A; tw2 07:11 BP 121 / 88; Pulse 76; Resp 17; Temp 98; Pulse Ox 99% on R/A; rv 06:10 Body Mass Index 50.21 (154.22 kg, 175.26 cm) meghana MDM: 06:04 Patient medically screened. kb 06:26 Data reviewed: vital signs, nurses notes. Data interpreted: Pulse oximetry: on room air kb is 96 %. Interpretation: normal. 06:57 Counseling: I had a detailed discussion with the patient and/or guardian regarding: the kb historical points, exam findings, and any diagnostic results supporting the discharge/admit diagnosis, lab results, radiology results, the need for outpatient follow up, a family practitioner, to return to the emergency department if symptoms worsen or persist or if there are any questions or concerns that arise at home. 08/14 06:12 Order name: Flu; Complete Time: 06:56 kb 08/14 06:12 Order name: COVID-19 kb 08/14 06:12 Order name: Chest Single View XRAY kb Administered Medications: No medications were administered Disposition: 08:14 Co-signature as Attending Physician, Joe Tenorio MD I agree with the assessment and tw4 plan of care. Disposition: 08/14/20 06:57 Discharged to Home. Impression: Acute upper respiratory infection, unspecified. - Condition is Stable. - Discharge Instructions: Viral Respiratory Infection, [id number], COVID-19. - Prescriptions for Albuterol Sulfate 90 mcg/actuation - inhale 1-2 puff by INHALATION route every 4-6 hours; 1 Inhaler. - Medication Reconciliation Form, Thank You Letter, Antibiotic Education, Prescription Opioid Use form. - Follow up: Emergency Department; When: As needed; Reason: Worsening of condition. Follow up: Private Physician; When: 2 - 3 days; Reason: Recheck today's complaints, Continuance of care, Re-evaluation by your physician. Signatures: Dispatcher [employer] Millie Brown, CARMEN HOWARD-Marianne Olivo, RN RN Joe Caputo MD MD tw4 Eliazar Villarreal RN RN rv Corrections: (The following items were deleted from the chart) 07:12 06:57 08/14/2020 06:57 Discharged to Home. Impression: Acute upper respiratory rv infection, unspecified. Condition is Stable. Forms are Medication Reconciliation Form, Thank You Letter, Antibiotic Education, Prescription Opioid Use. Follow up: Emergency Department; When: As needed; Reason: Worsening of condition. Follow up: Private Physician; When: 2 - 3 days; Reason: Recheck today's complaints, Continuance of care, Re-evaluation by your physician. kb
--- NOTE | 2020-08-14 06:58 | ER ---
Nurse's Notes [facility] Name: Ash Valdez Jr Age: 40 yrs Sex: Male : 1980 Arrival Date: 08/14/2020 Time: 05:58 Bed 7 Private MD: Diagnosis: Acute upper respiratory infection, unspecified Presentation: 08/14 06:10 Chief complaint: Patient states: he hasn't been feeling well the last 2 days has SOB, bb body aches, dry cough, chills, low back pain, has been taking Dayquil. Coronavirus screen: chills, shortness of breath, Client presents with at least one sign or symptom that may indicate coronavirus-19. Standard/surgical mask placed on the client. Ebola Screen: No symptoms or risks identified at this time. Initial Sepsis Screen: Does the patient meet any 2 criteria? No. Patient's initial sepsis screen is negative. Does the patient have a suspected source of infection? No. Patient's initial sepsis screen is negative. Risk Assessment: Do you want to hurt yourself or someone else? Patient reports no desire to harm self or others. Onset of symptoms was August 12, 2020. 06:10 Method Of Arrival: Ambulatory bb 06:10 Acuity: LIVAN 3 bb Triage Assessment: 06:13 General: Appears in no apparent distress. Behavior is calm, cooperative. Pain: bb Complains of pain in back. Neuro: Level of Consciousness is awake, alert, obeys commands, Oriented to person, place, time, situation. Cardiovascular: Capillary refill < 3 seconds Patient's skin is warm and dry. Respiratory: Reports shortness of breath cough that is dry, Onset: The symptoms/episode began/occurred yesterday, the patient has mild shortness of breath. Derm: Skin is pink, warm \T\ dry. Musculoskeletal: Circulation, motion, and sensation intact. Historical: - Allergies: 06:13 Naproxen; bb - Home Meds: 06:13 Omeprazole Oral [Active]; bb - PMHx: 06:13 GERD; bb - PSHx: 06:13 eye surgery; pelvis surgery; bb - Immunization history:: Adult Immunizations up to date. - Social history:: Smoking status: Patient reports the use of cigarette tobacco products, denies chronic smoking, but will smoke occasionally, Patient/guardian denies using alcohol, street drugs. Screenin:16 Abuse screen: Denies threats or abuse. Nutritional screening: No deficits noted. bb Tuberculosis screening: No symptoms or risk factors identified. Fall Risk None identified. Assessment: 06:16 Reassessment: see triage assessment. bb 06:17 Cardiovascular: Rhythm is regular. Respiratory: Airway is patent Respiratory effort is bb unlabored, Breath sounds are clear. Vital Signs: 06:10 BP 122 / 73; Pulse 79; Resp 18 S; Temp 98.4(O); Pulse Ox 96% on R/A; Weight 154.22 kg bb (R); Height 5 ft. 9 in. (175.26 cm) (R); Pain 2/10; 07:03 BP 127 / 86; Pulse 77; Resp 17; Pulse Ox 97% on R/A; tw2 07:11 BP 121 / 88; Pulse 76; Resp 17; Temp 98; Pulse Ox 99% on R/A; rv 06:10 Body Mass Index 50.21 (154.22 kg, 175.26 cm) bb ED Course: 05:58 Patient arrived in ED. cl3 06:03 Millie Zamudio FNP-C is [facility]. kb 06:03 Joe Tenorio MD is Attending Physician. kb 06:07 Eliazar Villarreal, JONAH is Primary Nurse. rv 06:12 Triage completed. bb 06:13 Arm band placed on Patient placed in an exam room, on a stretcher, on pulse oximetry. bb 06:16 Patient has correct armband on for positive identification. Bed in low position. Call bb light in reach. Side rails up X 1. Pulse ox on. NIBP on. Warm blanket given. 06:32 Chest Single View XRAY In Process Unspecified. EDMS 07:11 No provider procedures requiring assistance completed. Patient did not have IV access rv during this emergency room visit. Administered Medications: No medications were administered Outcome: 06:57 Discharge ordered by . kb 07:11 Discharged to home ambulatory. rv 07:11 Condition: good 07:11 Discharge instructions given to patient, Instructed on discharge instructions, follow up and referral plans. Demonstrated understanding of instructions, follow-up care. 07:12 Patient left the ED. rv Addendum: 08/18/2020 18:18 Addendum: COVID-19 Result: Positive result giiven to ED physician to notify pt. i w Physician: Wesley Gamez MD Physician was able to contact pt and pt was notified of positive COVID-19 swab result. Physician answered pt questions. Signatures: Dispatcher [employer] EDMS Millie Zamudio, PLAY THERAPIST-C PLAY THERAPIST-Marianne Olivo, RN RN bb Alyce Nava RN RN iw Isidra Fallon RN RN tw2 Eliazar Villarreal RN RN Anmol Hutton cl3
[2020-08-14 07:20] VITALS: BP 121/88; TEMP 98; O2SAT 99
--- NOTE | 2020-08-14 07:21 | RAD REPORT ---
EXAM DESCRIPTION: RAD - Chest Single View - 08/14/2020 6:32 am CLINICAL HISTORY: Cough;Dyspnea, shortness of breath COMPARISON: None TECHNIQUE: AP portable chest image was obtained 08/14/2020 6:32 grimes lordotic positioning . FINDINGS: Lung volumes are low. Portable technique, shallow inspiration and large body habitus fall accentuate chest findings. No peripheral mass or consolidation seen. No significant failure or volume overload identifiable. Hea rt size and vasculature within normal range for a shallow inspiration portable exam. No measurable pl eural effusion and no pneumothorax. No acute bony abnormality seen. No acute aortic findings suspecte d. IMPRESSION: Limited shallow inspiration exam without acute cardiopulmonary finding.
== END 2020-08-14 07:12 | disposition home or self-care (01) ==
LOC: ER 05:56
DX: U07.1 COVID-19 (principal); J06.9 Acute upper respiratory infection, unspecified; K21.9 Gastro-esophageal reflux disease without esophagitis; F17.210 Nicotine dependence, cigarettes, uncomplicated; Z88.6 Allergy status to analgesic agent
CPT/HCPCS: 71045; 87804; 99283; U0002

== ENCOUNTER 2022-03-14 13:14 | Emergency (ER) | payer SELFPAY ==
[2022-03-14 13:44] LABS: Absolute Lymphocytes (CBC) 1.3 K/uL (0.7-4.9); Hematocrit 46.4 % (39.6-49.0); Lymphocytes % 17.8 % (15.3-44.8); MPV 9.8 fL (7.6-11.3); RBC Red Blood Cell Count 5.49 M/uL (4.33-5.43)
[2022-03-14] MEDS ORDERED: ASPIRIN 81 MG CHEWABLE TABLET ONE (13:47)
[2022-03-14 13:48] LABS: Protime INR 1.15
[2022-03-14 14:18] LABS: ALT/SGPT 39 U/L (12-78); AST/SGOT 21 U/L (15-37); Albumin 3.8 g/dL (3.4-5.0); Alkaline Phosphatase 64 U/L (45-117); BUN Blood Urea Nitrogen 17 mg/dL (7-18); Bicarbonate 29 mmol/L (21-32); Bilirubin Direct 0.3 mg/dL (0-0.2); Bilirubin Total 1.1 mg/dL (0.2-1.0); Glucose Level 93 mg/dL (74-106); Magnesium 2.4 mg/dL (1.8-2.4); NT PRO-BNP 7 pg/mL (<125); Potassium 3.6 mmol/L (3.5-5.1); Protein, Total 7.4 g/dL (6.4-8.2); Sodium Level 138 mmol/L (136-145); Troponin High Sensitivity < 3.0 pg/mL (<58.9)
--- NOTE | 2022-03-14 17:52 | ER ---
Nurse's Notes [facility] Name: Ash Valdez Jr Age: 41 yrs Sex: Male : 1980 Arrival Date: 03/14/2022 Time: 13:16 Bed 18 Private MD: Diagnosis: Chest pain, unspecified Presentation: 03/14 13:20 Chief complaint: Patient states: feeling weak for past couple days, and now has chest iw pains and down left arm and his neck feels stiff , started Thursday. Coronavirus screen: At this time, the client does not indicate any symptoms associated with coronavirus-19. Ebola Screen: Patient negative for fever greater than or equal to 101.5 degrees Fahrenheit, and additional compatible Ebola Virus Disease symptoms Patient denies exposure to infectious person. Patient denies travel to an Ebola-affected area in the 21 days before illness onset. No symptoms or risks identified at this time. Initial Sepsis Screen: Does the patient meet any 2 criteria? No. Patient's initial sepsis screen is negative. Does the patient have a suspected source of infection? No. Patient's initial sepsis screen is negative. Risk Assessment: Do you want to hurt yourself or someone else? Patient reports no desire to harm self or others. Onset of symptoms was March 11, 2022. 13:20 Method Of Arrival: Ambulatory iw 13:20 Acuity: LIVAN 3 iw Historical: - Allergies: 13:21 Naproxen; iw - Home Meds: 13:21 Omeprazole Oral once daily [Active]; iw - PMHx: 13:21 GERD; iw - PSHx: 13:21 pelvis; iw - Immunization history:: Adult Immunizations. - Social history:: Smoking status: unknown. Screenin:49 Abuse screen: Denies threats or abuse. Nutritional screening: No deficits noted. jd3 Tuberculosis screening: No symptoms or risk factors identified. Fall Risk Ambulatory Aid- None/Bed Rest/Nurse Assist (0 pts). Gait- Normal/Bed Rest/Wheelchair (0 pts) Mental Status- Oriented to own ability (0 pts). Total Bourgeois Fall Scale indicates No Risk (0-24 pts). Assessment: 13:40 General: Appears in no apparent distress. comfortable, Behavior is calm, cooperative, jd3 appropriate for age. Pain: Complains of pain in chest Pain radiates to left arm Quality of pain is described as pressure, sharp, Pain began gradually. Neuro: Level of Consciousness is awake, alert, obeys commands, Oriented to person, place, time, situation. Cardiovascular: Capillary refill < 3 seconds Patient's skin is warm and dry. Rhythm is regular. Respiratory: Reports shortness of breath on exertion Airway is patent Respiratory effort is even, unlabored, Respiratory pattern is regular, symmetrical. GI: No signs and/or symptoms were reported involving the gastrointestinal system. : No signs and/or symptoms were reported regarding the genitourinary system. EENT: No signs and/or symptoms were reported regarding the EENT system. Derm: Skin is intact, Skin is diaphoretic, Skin is normal, Skin temperature is warm. Musculoskeletal: Circulation, motion, and sensation intact. Range of motion: intact in all extremities. 13:46 Reassessment: pt reporting taking BC powder with aspirin included at around noon. j provider notified. 14:44 Reassessment: Patient appears in no apparent distress at this time. No changes from j previously documented assessment. Patient and/or family updated on plan of care and expected duration. Pain level reassessed. Patient is alert, oriented x 3, equal unlabored respirations, skin warm/dry/pink. 15:47 Reassessment: Patient appears in no apparent distress at this time. Patient and/or jd3 family updated on plan of care and expected duration. Pain level reassessed. Patient is alert, oriented x 3, equal unlabored respirations, skin warm/dry/pink. Patient states feeling better. 16:57 Reassessment: Patient appears in no apparent distress at this time. No changes from jd3 previously documented assessment. Patient and/or family updated on plan of care and expected duration. Pain level reassessed. Patient is alert, oriented x 3, equal unlabored respirations, skin warm/dry/pink. 18:17 Reassessment: Patient appears in no apparent distress at this time. Patient and/or jd3 family updated on plan of care and expected duration. Pain level reassessed. Patient is alert, oriented x 3, equal unlabored respirations, skin warm/dry/pink. Vital Signs: 13:20 BP 144 / 75; Pulse 93; Resp 18; Temp 96.0; Pulse Ox 97% on R/A; Weight 145.15 kg; iw Height 5 ft. 9 in. (175.26 cm); Pain 8/10; 14:44 BP 120 / 76; Pulse 92; Resp 18 S; Pulse Ox 96% on R/A; jd3 15:47 BP 98 / 57; Pulse 72; Resp 18 S; Pulse Ox 97% on R/A; jd3 17:09 Pulse 92; Resp 17 S; Pulse Ox 97% on R/A; jd3 18:17 BP 132 / 90; Pulse 75; Resp 16; Pulse Ox 99% on R/A; iw 13:20 Body Mass Index 47.26 (145.15 kg, 175.26 cm) iw ED Course: 13:16 Patient arrived in ED. ds1 13:17 Roque Sanabria PA is PHCP. [facility] 13:17 Sanford Chambers MD is Attending Physician. m 13:21 Triage completed. iw 13:22 Ambrocio Noriega RN is Primary Nurse. jd3 13:22 Arm band placed on. iw 13:41 Inserted saline lock: 20 gauge in right antecubital area, using aseptic technique. jd3 Blood collected. 13:41 Patient maintains SpO2 saturation greater than 95% on room air. jd3 13:49 Patient has correct armband on for positive identification. Bed in low position. Call jd3 light in reach. Side rails up X2. Adult w/ patient. poultry offal icer on. Pulse ox on. NIBP on. 14:30 XRAY Chest (1 view) In Process Unspecified. EDMS 18:16 No provider procedures requiring assistance completed. IV discontinued, intact, iw bleeding controlled, No redness/swelling at site. Pressure dressing applied. Administered Medications: 13:46 Not Given (Physician Discretion): Aspirin Chewable Tablet 324 mg PO once; 81 mg tablets jd3 x 4 Outcome: 17:52 Discharge ordered by . justin 18:16 Discharged to home ambulatory. iw 18:16 Condition: good 18:16 Discharge instructions given to patient, Instructed on discharge instructions, follow up and referral plans. Demonstrated understanding of instructions, follow-up care. 18:17 Patient left the ED. iw Signatures: Dispatcher [employer] EDMS Roque Sanabria PA PA jmm Sanford, Demi ds1 Alyce Nava RN RN iw Noriega, Ambrocio, RN RN jd3
--- NOTE | 2022-03-14 17:52 | EDPHYS ---
Physician Documentation [facility] Name: Ash Valdez Jr Age: 41 yrs Sex: Male : 1980 Arrival Date: 03/14/2022 Time: 13:16 Bed 18 Private MD: RITU Physician Sanford Chambers HPI: 03/14 13:33 This 41 yrs old Male presents to ER via Ambulatory with complaints of Chest Pain. [facility] 13:33 The patient or guardian reports chest pain that is located primarily in the substernal [facility] area. Onset: gradually, 3 day(s) ago. The pain radiates to the left arm. Associated signs and symptoms: Pertinent positives: shortness of breath. The chest pain is described as aching. Duration: The patient or guardian reports multiple episodes. Is a 41-year-old male with history of GERD that presents emerged part with complaints of substernal chest pain beginning the past Thursday. States the pain is intermittent and lasted for few minutes at a time. States that yesterday he perform strenuous activity and had increased fatigue. Patient states now he has ongoing chest pain with radiation to the left arm and left scapular region.. Historical: - Allergies: 13:21 Naproxen; iw - Home Meds: 13:21 Omeprazole Oral once daily [Active]; iw - PMHx: 13:21 GERD; iw - PSHx: 13:21 pelvis; iw - Immunization history:: Adult Immunizations. - Social history:: Smoking status: unknown. ROS: 13:33 Constitutional: Negative for fever, chills, and weight loss. jmm 13:33 Constitutional: Positive for fatigue. 13:33 Cardiovascular: Positive for chest pain. 13:33 All other systems are negative. Exam: 13:33 Constitutional: This is a well developed, well nourished patient who is awake, alert, jmm and in no acute distress. Head/Face: atraumatic. Eyes: EOMI, no conjunctival erythema appreciated ENT: Moist Mucus Membranes Neck: Trachea midline, Supple Chest/axilla: Normal chest wall appearance and motion. Cardiovascular: Regular rate and rhythm. No edema appreciated Respiratory: Normal respirations, no respiratory distress appreciated Abdomen/GI: Non distended, soft Back: Normal ROM Skin: General appearance color normal MS/ Extremity: Moves all extremities, no obvious deformities appreciated, no edema noted to the lower extremities Neuro: Awake and alert Psych: Behavior is normal, Mood is normal, Patient is cooperative and pleasant Vital Signs: 13:20 BP 144 / 75; Pulse 93; Resp 18; Temp 96.0; Pulse Ox 97% on R/A; Weight 145.15 kg; iw Height 5 ft. 9 in. (175.26 cm); Pain 8/10; 14:44 BP 120 / 76; Pulse 92; Resp 18 S; Pulse Ox 96% on R/A; jd3 15:47 BP 98 / 57; Pulse 72; Resp 18 S; Pulse Ox 97% on R/A; jd3 17:09 Pulse 92; Resp 17 S; Pulse Ox 97% on R/A; jd3 18:17 BP 132 / 90; Pulse 75; Resp 16; Pulse Ox 99% on R/A; iw 13:20 Body Mass Index 47.26 (145.15 kg, 175.26 cm) iw MDM: 13:33 Patient medically screened. [facility] 17:51 Data reviewed: vital signs, nurses notes. Counseling: I had a detailed discussion with justin the patient and/or guardian regarding: the historical points, exam findings, and any diagnostic results supporting the discharge/admit diagnosis, lab results, radiology results, the need for outpatient follow up, to return to the emergency department if symptoms worsen or persist or if there are any questions or concerns that arise at home. ED course: Patient is alert nontoxic in appearance in the ED. Repeat troponins were within normal limits. Patient advised to follow with cardiology for further evaluation otherwise given strict return precautions. Patient understood agrees to plan of care.. 03/14 13:34 Order name: Basic Metabolic Panel; Complete Time: 14:20 [facility] 03/14 13:34 Order name: CBC with Diff; Complete Time: 14:00 [facility] 03/14 13:34 Order name: LFT's; Complete Time: 14:20 [facility] 03/14 13:34 Order name: Magnesium; Complete Time: 14:20 [facility] 03/14 13:34 Order name: NT PRO-BNP; Complete Time: 14:20 [facility] 03/14 13:34 Order name: PT-INR; Complete Time: 14:00 [facility] 03/14 13:34 Order name: Troponin HS; Complete Time: 14:20 [facility] 03/14 13:34 Order name: XRAY Chest (1 view) [facility] 03/14 13:34 Order name: EKG; Complete Time: 13:34 [facility] 03/14 13:34 Order name: Cardiac monitoring; Complete Time: 13:41 [facility] 03/14 13:34 Order name: D-Dimer; Complete Time: 14:00 [facility] 03/14 15:24 Order name: COVID-19/FLU A+B (Document "Date of Onset" if Symptomatic); Complete Time: [facility] 18:09 03/14 16:20 Order name: Troponin High Sensitivity: repeat; Complete Time: 17:47 [facility] 03/14 13:34 Order name: EKG - Nurse/Tech; Complete Time: 13:41 [facility] 03/14 13:34 Order name: IV Saline Lock; Complete Time: 13:41 [facility] 03/14 13:34 Order name: Labs collected and sent; Complete Time: 13:41 [facility] 03/14 13:34 Order name: O2 Per Protocol; Complete Time: 13:41 [facility] 03/14 13:34 Order name: O2 Sat Monitoring; Complete Time: 13:41 [facility] Administered Medications: 13:46 Not Given (Physician Discretion): Aspirin Chewable Tablet 324 mg PO once; 81 mg tablets jd3 x 4 Disposition Summary: 03/14/22 17:52 Discharge Ordered Location: Home [facility] Condition: Stable [facility] Diagnosis - Chest pain, unspecified [facility] Followup: [facility] - With: Private Physician - When: 2 - 3 days - Reason: Recheck today's complaints, Continuance of care, Re-evaluation by your physician Discharge Instructions: - Discharge Summary Sheet [facility] - Nonspecific Chest Pain, Adult [facility] Forms: - Medication Reconciliation Form [facility] - Thank You Letter [facility] - Antibiotic Education [facility] - Prescription Opioid Use [facility] Signatures: Dispatcher [employer] EDRoque Perez PA PA jmm Williams, Irene RN Ambrocio Tran RN RN jd3
[2022-03-14 18:08] LABS: SARS-COV-2 RT PCR NEGATIVE (NEGATIVE)
[2022-03-14 18:24] VITALS: TEMP 96
[2022-03-14 18:30] VITALS: BP 132/90; O2SAT 99
== END 2022-03-14 18:17 | disposition home or self-care (01) ==
LOC: ER 13:14
DX: R07.9 Chest pain, unspecified (principal); R53.83 Other fatigue; K21.9 Gastro-esophageal reflux disease without esophagitis; Z20.822 Contact with and (suspected) exposure to COVID-19; Z88.5 Allergy status to narcotic agent
CPT/HCPCS: 0240U; 36415; 71045; 80048; 80076; 83735; 83880; 84484; 85025; 85379; 85610; 93005; 99285

== ENCOUNTER 2022-07-06 21:03 | Emergency (ER) | payer OTHER ==
--- NOTE | 2022-07-06 22:26 | EDPHYS ---
Physician Documentation [facility] Name: Ash Valdez Jr Age: 42 yrs Sex: Male : 1980 Arrival Date: 07/06/2022 Time: 21:05 Bed 12 Private MD: ED Physician Arcadio Amaya HPI: 07/06 23:05 This 42 yrs old Male presents to ER via Ambulatory with complaints of Eye Problem. snw 23:05 The patient is experiencing blurred vision, pain, tearing, to the right eye, caused by snw an unknown mechanism. Onset: The symptoms/episode began/occurred gradually, 3 week(s) ago, seen by the [facility] and given gentamycin gtts. Duration: the symptoms are continuous. Aggravated by light. Patient does not utilize any form of vision correction. Severity of symptoms: At their worst the symptoms were moderate. It is unknown whether or not the patient has had similar symptoms in the past. three weeks ago at the [facility], appt with opthal in about 3 weeks. Historical: - Allergies: 21:53 Naproxen; kb3 - Home Meds: 21:53 Omeprazole Oral once daily [Active]; kb3 - PMHx: 21:53 GERD; kb3 - PSHx: 21:53 Pelvis; kb3 - Immunization history:: Adult Immunizations up to date, Client reports receiving the 2nd dose of the Covid vaccine, Last tetanus immunization: up to date. - Social history:: Smoking status: Patient denies any tobacco usage or history of. Patient/guardian denies using alcohol, street drugs. ROS: 23:04 Constitutional: Negative for fever, chills, and weight loss, ENT: Negative for injury, snw pain, and discharge, Neck: Negative for injury, pain, and swelling, Cardiovascular: Negative for chest pain, palpitations, and edema, Respiratory: Negative for shortness of breath, cough, wheezing, and pleuritic chest pain, Abdomen/GI: Negative for abdominal pain, nausea, vomiting, diarrhea, and constipation, Back: Negative for injury and pain, : Negative for injury, bleeding, discharge, and swelling, MS/Extremity: Negative for injury and deformity, Skin: Negative for injury, rash, and discoloration, Neuro: Negative for headache, weakness, numbness, tingling, and seizure, Psych: Negative for depression, anxiety, suicide ideation, homicidal ideation, and hallucinations. 23:04 Eyes: Positive for blurry vision, discharge, tearing, of the right eye. Exam: 23:03 Constitutional: This is a well developed, well nourished patient who is awake, alert, snw and in no acute distress. Head/Face: Normocephalic, atraumatic. ENT: Nares patent. No nasal discharge, no septal abnormalities noted. Tympanic membranes are normal and external auditory canals are clear. Oropharynx with no redness, swelling, or masses, exudates, or evidence of obstruction, uvula midline. Mucous membranes moist. Neck: Trachea midline, no thyromegaly or masses palpated, and no cervical lymphadenopathy. Supple, full range of motion without nuchal rigidity, or vertebral point tenderness. No Meningismus. Chest/axilla: Normal chest wall appearance and motion. Nontender with no deformity. No lesions are appreciated. Cardiovascular: Regular rate and rhythm with a normal S1 and S2. No gallops, murmurs, or rubs. Normal PMI, no JVD. No pulse deficits. Respiratory: Lungs have equal breath sounds bilaterally, clear to auscultation and percussion. No rales, rhonchi or wheezes noted. No increased work of breathing, no retractions or nasal flaring. Abdomen/GI: Soft, non-tender, with normal bowel sounds. No distension or tympany. No guarding or rebound. No evidence of tenderness throughout. Back: No spinal tenderness. No costovertebral tenderness. Full range of motion. Skin: Warm, dry with normal turgor. Normal color with no rashes, no lesions, and no evidence of cellulitis. MS/ Extremity: Pulses equal, no cyanosis. Neurovascular intact. Full, normal range of motion. Neuro: Awake and alert, GCS 15, oriented to person, place, time, and situation. Cranial nerves II-XII grossly intact. Motor strength 5/5 in all extremities. Sensory grossly intact. Cerebellar exam normal. Normal gait. Psych: Awake, alert, with orientation to person, place and time. Behavior, mood, and affect are within normal limits. 23:03 Eyes: Pupils: no acute changes, Extraocular movements: no acute changes, Conjunctiva: injected, in the right eye, almost appears filmed. Corneas: no acute changes, Sclera: no appreciated abnormality, Anterior chamber: no increased pressure. Lids and lashes: appear normal. Vital Signs: 21:51 BP 136 / 75; Pulse 65; Resp 18; Temp 97.9; Pulse Ox 100% ; Weight 142.88 kg; Height 5 kb3 ft. 9 in. (175.26 cm); Pain 7/10; 21:51 Body Mass Index 46.52 (142.88 kg, 175.26 cm) kb3 MDM: 22:20 Patient medically screened. snw 23:04 Data reviewed: vital signs, nurses notes. Data interpreted: Pulse oximetry: on room air snw is 100 %. Interpretation: normal. Counseling: I had a detailed discussion with the patient and/or guardian regarding: the historical points, exam findings, and any diagnostic results supporting the discharge/admit diagnosis, the need for outpatient follow up, to return to the emergency department if symptoms worsen or persist or if there are any questions or concerns that arise at home. Special discussion: Based on the history and exam findings, there is no indication for further emergent testing or inpatient evaluation. I discussed with the patient/guardian the need to see the opthamologist for further evaluation of the symptoms. Administered Medications: 22:41 Drug: [place] (HYDROcodone-acetaminophen) 5 mg-325 mg 1 tabs Route: PO; bb 22:41 Follow up: Response: Medication administered at discharge. bb Disposition: 23:43 Co-signature as Attending Physician, Arcadio Amaya MD. mh7 Disposition Summary: 07/06/22 22:20 Discharge Ordered Location: Home snw Condition: Stable snw Diagnosis - Ocular pain, right eye snw Followup: snw - With: Ana Rider MD - When: 1 - 2 days - Reason: Recheck today's complaints, Continuance of care Discharge Instructions: - Discharge Summary Sheet snw - How to Use Eye Drops and Eye Ointments snw - Pain Without a Known Cause snw - Dry Eye snw Forms: - Medication Reconciliation Form snw - Thank You Letter snw - Antibiotic Education snw - Prescription Opioid Use snw Prescriptions: - moxifloxacin 0.5 % Ophthalmic drops - instill 1 drop by OPHTHALMIC route 3 times per day; 1 Each; Refills: 0, Product snw Selection Permitted Signatures: Jess Culver FNP-C FNP-Csnw Marianne Merino, RN RN bb Arcadio Amaya MD MD mh7 Kayleigh Reno RN RN kb3
--- NOTE | 2022-07-06 22:26 | ER ---
Nurse's Notes [facility] Name: Ash Valdez Jr Age: 42 yrs Sex: Male : 1980 Arrival Date: 07/06/2022 Time: 21:05 Bed 12 Private MD: Diagnosis: Ocular pain, right eye Presentation: 07/06 21:51 Chief complaint: Patient states: Right eye pain, redness, swelling, excessive tearing kb3 x3 weeks. PCP prescribed gentamycin gtts x1 week with no relief. Coronavirus screen: Vaccine status: Patient reports receiving the 2nd dose of the covid vaccine. Client denies travel out of the [place] in the last 14 days. At this time, the client does not indicate any symptoms associated with coronavirus-19. Ebola Screen: Patient negative for fever greater than or equal to 101.5 degrees Fahrenheit, and additional compatible Ebola Virus Disease symptoms Patient denies exposure to infectious person. Patient denies travel to an Ebola-affected area in the 21 days before illness onset. No symptoms or risks identified at this time. Initial Sepsis Screen: Does the patient meet any 2 criteria? No. Patient's initial sepsis screen is negative. Does the patient have a suspected source of infection? No. Patient's initial sepsis screen is negative. Risk Assessment: Do you want to hurt yourself or someone else? Patient reports no desire to harm self or others. Onset of symptoms was June 15, 2022. 21:51 Method Of Arrival: Ambulatory kb3 21:51 Acuity: LIVAN 4 kb3 Triage Assessment: 21:53 General: Appears in no apparent distress. Behavior is calm, cooperative. Pain: kb3 Complains of pain in right eye Quality of pain is described as burning, Pain began 3 weeks ago. Historical: - Allergies: 21:53 Naproxen; kb3 - Home Meds: 21:53 Omeprazole Oral once daily [Active]; kb3 - PMHx: 21:53 GERD; kb3 - PSHx: 21:53 Pelvis; kb3 - Immunization history:: Adult Immunizations up to date, Client reports receiving the 2nd dose of the Covid vaccine, Last tetanus immunization: up to date. - Social history:: Smoking status: Patient denies any tobacco usage or history of. Patient/guardian denies using alcohol, street drugs. Screenin:18 Abuse screen: Denies threats or abuse. Denies injuries from another. Nutritional kd3 screening: No deficits noted. Tuberculosis screening: No symptoms or risk factors identified. Fall Risk None identified. Assessment: 22:41 General: Appears in no apparent distress. uncomfortable, Behavior is calm, cooperative. bb Pain: Complains of pain in right eye. Neuro: Level of Consciousness is awake, alert, obeys commands, Oriented to person, place, time, situation. Cardiovascular: No deficits noted. Respiratory: Respiratory effort is even, unlabored. GI: No signs and/or symptoms were reported involving the gastrointestinal system. EENT: Eyes right eye with scleral erythema. Derm: Skin is pink, warm \T\ dry. Musculoskeletal: Circulation, motion, and sensation intact. Vital Signs: 21:51 BP 136 / 75; Pulse 65; Resp 18; Temp 97.9; Pulse Ox 100% ; Weight 142.88 kg; Height 5 kb3 ft. 9 in. (175.26 cm); Pain 7/10; 21:51 Body Mass Index 46.52 (142.88 kg, 175.26 cm) kb3 ED Course: 21:05 Patient arrived in ED. rg4 21:53 Triage completed. kb3 21:53 Arm band placed on right wrist. kb3 22:03 [facility]C [facility]. snw 22:03 Arcadio Amaya MD is Attending Physician. snw 22:04 Josy Mendieta, JONAH is Primary Nurse. kd3 22:18 Patient has correct armband on for positive identification. kd3 22:19 Ana Rider MD is Referral Physician. snw 22:41 No provider procedures requiring assistance completed. Patient did not have IV access bb during this emergency room visit. Administered Medications: 22:41 Drug: [place] (HYDROcodone-acetaminophen) 5 mg-325 mg 1 tabs Route: PO; bb 22:41 Follow up: Response: Medication administered at discharge. bb Medication: 22:18 VIS not applicable for this client. kd3 Outcome: 22:20 Discharge ordered by . snw 22:41 Discharged to home ambulatory, with family. bb 22:41 Condition: stable 22:41 Discharge instructions given to patient, Instructed on discharge instructions, follow up and referral plans. no driving heavy equipment, medication usage, Demonstrated understanding of instructions, follow-up care, medications, Prescriptions given X 1. 22:43 Patient left the ED. bb Signatures: Jess Culver, FREIGHT MANAGER-C FREIGHT MANAGER-Csnw Marianne Merino, RN RN bb Krupa Howell rg4 Josy Mendieta RN RN kd3 Kayleigh Reno RN RN kb3
[2022-07-06] MEDS ORDERED: HYDROCODONE/APAP 5/325 MG TAB ONE (22:46)
[2022-07-07 01:12] VITALS: BP 136/75; TEMP 97.9; O2SAT 100
== END 2022-07-06 22:43 | disposition home or self-care (01) ==
LOC: ER 21:03
DX: H57.11 Ocular pain, right eye (principal); H53.8 Other visual disturbances; Z88.6 Allergy status to analgesic agent
CPT/HCPCS: 99283

== ENCOUNTER 2023-04-04 21:49 | Emergency (ER) | payer BC ==
--- OUTSIDE RECORDS SUMMARY | 2023-04-04 21:52 | XMS REPORT | Continuity of Care Document ---
:1980 Author Organization [facility] t Address [address] [place] [address] [place] [id number] Care Team Providers Name Role Phone Unavailable Unavailable Unavailable Problems This patient has no known problems. Allergies, Adverse Reactions, Alerts This patient has no known allergies or adverse reactions. Medications This patient has no known medications. Procedures This patient has no known procedures. Encounters Start End Encounter Admission Attending Care Care Encounter Source Date/Time Date/Time Type Type Clinicians Facility Department ID 2020-10-01 2020-10-[address] [facility] PDPFEZM EBN [facility] 00:00:00 00:00:00 [id number] Results This patient has no known results.
[2023-04-04] MEDS ORDERED: predniSONE 20 MG TAB ONE (22:17)
[2023-04-04] MEDS ORDERED: ALBUTEROL 2.5 MG/3 ML NEB SOL ONE (22:17)
[2023-04-04] MEDS ORDERED: IPRATROPIUM BROM 0.5MG/2.5ML ONE (22:17)
--- NOTE | 2023-04-04 23:32 | EDPHYS ---
Physician Documentation [facility] Name: Ash Valdez Jr Age: 42 yrs Sex: Male : 1980 Arrival Date: 04/04/2023 Time: 21:49 Bed 12 Private MD: ED Physician Alma Webb HPI: 04/04 23:03 This 42 yrs old Male presents to ER via Ambulatory with complaints of Cough, kb Congestion, Headache. 23:03 The patient or guardian reports cough, that is intermittent, described as mild, kb difficulty breathing. Onset: The symptoms/episode began/occurred 1 week(s) ago. Severity of symptoms: At their worst the symptoms were moderate, in the emergency department the symptoms are unchanged. Modifying factors: The symptoms are alleviated by nothing, the symptoms are aggravated by nothing. Associated signs and symptoms: Pertinent positives: rhinorrhea. The patient has not experienced similar symptoms in the past. The patient has been recently seen by a physician:. Pt reports cough, congestion, shortness of breath and headache for one week. Had fever for the first day or two, but that resolved. Was seen at [facility] on [facility], tested negative for flu and covid. Was not given any medication and symptoms have persisted. Historical: - Allergies: 22:07 Naproxen; kl - Home Meds: 22:07 Omeprazole Oral once daily [Active]; kl - PMHx: 22:07 GERD; kl - PSHx: 22:07 Pelvis; kl - Immunization history:: Adult Immunizations up to date. - Social history:: Smoking status: Reported history of juuling and/or vaping. ROS: 22:59 Constitutional: Negative for fever, chills, and weight loss. kb 22:59 ENT: Positive for rhinorrhea, sinus congestion. 22:59 Respiratory: Positive for cough, shortness of breath. 22:59 Neuro: Positive for headache. 22:59 All other systems are negative. Exam: 22:59 Constitutional: This is a well developed, well nourished patient who is awake, alert, kb and in no acute distress. Head/Face: Normocephalic, atraumatic. ENT: Moist Mucous membranes Cardiovascular: Regular rate and rhythm with a normal S1 and S2. No gallops, murmurs, or rubs. No pulse deficits. Skin: Warm, dry with normal turgor. Normal color. MS/ Extremity: Pulses equal, no cyanosis. Neurovascular intact. Full, normal range of motion. Neuro: Awake and alert, GCS 15, oriented to person, place, time, and situation. Moves all extremities. Normal gait. 22:59 Respiratory: the patient does not display signs of respiratory distress, Respirations: normal, Breath sounds: wheezing: expiratory that is mild, is scattered. Vital Signs: 22:04 BP 136 / 85; Pulse 82; Resp 18; Temp 97(TE); Pulse Ox 97% ; Weight 142.88 kg; Height 5 kl ft. 9 in. ; Pain 0/10; 23:21 Pulse 80; Resp 17; Pulse Ox 99% on R/A; kl 23:48 BP 141 / 89; kl 22:04 Body Mass Index 46.52 (142.88 kg, 175.26 cm) kl 22:04 Pain Scale: Adult kl MDM: 22:02 Patient medically screened. kb 23:00 Differential Diagnosis: Bronchitis Upper Respiratory Infection Pneumonia. Data kb reviewed: vital signs, nurses notes. Test considered but Not performed: Labs: covid, flu tests considered, but symptoms have been ongoing for one week. Results would not change course of treatment. Counseling: I had a detailed discussion with the patient and/or guardian regarding: the historical points, exam findings, and any diagnostic results supporting the discharge/admit diagnosis, radiology results, the need for outpatient follow up, a family practitioner, to return to the emergency department if symptoms worsen or persist or if there are any questions or concerns that arise at home. 04/04 22:10 Order name: Chest Pa And Lat (2 Views) XRAY chele Administered Medications: 22:14 Drug: predniSONE PO 60 mg Route: PO; cg 22:38 Follow up: Response: No adverse reaction kl 22:14 Drug: Ipratropium Inhalation Aerosol 0.5 mg Route: Inhalation; cg 22:38 Follow up: Response: No adverse reaction; Marked relief of symptoms kl 22:14 Drug: Albuterol Inhalation 2.5 mg Route: Inhalation; cg 22:38 Follow up: Response: No adverse reaction; Marked relief of symptoms Disposition: 04/05 07:07 STAFF ATTESTATION STATEMENT: I was immediately available onsite in the emergency sd2 department for consultation in the care of this patient. I did not see or examine this patient. Alma Webb MD. Disposition Summary: 04/04/23 23:32 Discharge Ordered Location: Home kb Condition: Stable kb Diagnosis - Acute bronchitis, unspecified kb Followup: kb - With: Emergency Department - When: As needed - Reason: Worsening of condition Followup: kb - With: Private Physician - When: 2 - 3 days - Reason: Recheck today's complaints, Continuance of care, Re-evaluation by your physician Discharge Instructions: - Discharge Summary Sheet kb - Acute Bronchitis, Adult, [id number] kb Forms: - Medication Reconciliation Form kb - Thank You Letter kb - Antibiotic Education kb - Prescription Opioid Use kb Prescriptions: - albuterol sulfate 90 mcg/actuation Inhalation HFA Aerosol Inhaler - inhale 2 puff by INHALATION route every 4 to 6 hours As needed; 1 unit; kb Refills: 0, Product Selection Permitted - Prednisone 20 mg Oral Tablet - take 1 tablet by ORAL route once daily for 5 days; 5 tablet; Refills: 0, kb Product Selection Permitted - Tessalon Perles 100 mg Oral Capsule - take 1 capsule by ORAL route every 8 hours As needed; 15 capsule; Refills: 0, kb Product Selection Permitted Signatures: Dispatcher [employer] Millie Brown, CARMEN HOWARD-Whitney Galindo RN Veronica Tolbert RN RN cg Dunlop, Stephanie, MD MD sd2
--- NOTE | 2023-04-04 23:32 | ER ---
Nurse's Notes [facility] Name: Ash Valdez Jr Age: 42 yrs Sex: Male : 1980 Arrival Date: 04/04/2023 Time: 21:49 Bed 12 Private MD: Diagnosis: Acute bronchitis, unspecified Presentation: 04/04 22:04 Chief complaint: Patient states: cough congestion and SOB x 1 week. Coronavirus screen: Vaccine status: Patient reports receiving the 2nd dose of the covid vaccine. Ebola Screen: Patient negative for fever greater than or equal to 101.5 degrees Fahrenheit, and additional compatible Ebola Virus Disease symptoms. Resp Distress? Mild respiratory distress is noted. Initial Sepsis Screen: Does the patient meet any 2 criteria? No. Patient's initial sepsis screen is negative. Does the patient have a suspected source of infection? No. Patient's initial sepsis screen is negative. Risk Assessment: Do you want to hurt yourself or someone else? Patient reports no desire to harm self or others. 22:04 Method Of Arrival: Ambulatory 22:04 Acuity: LIVAN 4 23:48 Onset of symptoms was March 28, 2023. Triage Assessment: 22:07 General: Appears in no apparent distress. comfortable, Behavior is calm, cooperative. kl Pain: Complains of pain in headache. Respiratory: Breath sounds with wheezes bilaterally. Historical: - Allergies: 22:07 Naproxen; kl - Home Meds: 22:07 Omeprazole Oral once daily [Active]; kl - PMHx: 22:07 GERD; - PSHx: 22:07 Pelvis; - Immunization history:: Adult Immunizations up to date. - Social history:: Smoking status: Reported history of juuling and/or vaping. Screenin:45 [facility] ED Fall Risk Assessment (Adult) History of falling in the last 3 months, including since admission No falls in past 3 months (0 pts) Confusion or Disorientation No (0 pts) Intoxicated or Sedated No (0 pts) Impaired Gait No (0 pts) Mobility Assist Device Used No (0 pt) Altered Elimination No (0 pt) Score/Fall Risk Level 0 - 2 = Low Risk. Abuse screen: Denies threats or abuse. Nutritional screening: No deficits noted. Tuberculosis screening: No symptoms or risk factors identified. Assessment: 22:45 Cardiovascular: No deficits noted. Capillary refill < 3 seconds Clubbing of nail beds kl is absent JVD is absent. Respiratory: Airway is patent Trachea midline Respiratory effort is even, Respiratory pattern is regular, symmetrical. 23:21 Reassessment: Patient appears in no apparent distress at this time. Patient and/or kl family updated on plan of care and expected duration. Pain level reassessed. Patient is alert, oriented x 3, equal unlabored respirations, skin warm/dry/pink. Patient states feeling better. Patient states symptoms have improved. Vital Signs: 22:04 BP 136 / 85; Pulse 82; Resp 18; Temp 97(TE); Pulse Ox 97% ; Weight 142.88 kg; Height 5 kl ft. 9 in. ; Pain 0/10; 23:21 Pulse 80; Resp 17; Pulse Ox 99% on R/A; kl 23:48 BP 141 / 89; kl 22:04 Body Mass Index 46.52 (142.88 kg, 175.26 cm) kl 22:04 Pain Scale: Adult ED Course: 21:57 Patient arrived in ED. jj6 22:02 Millie Zamudio FNP-C is PHCP. kb 22:02 Alma Webb MD is Attending Physician. kb 22:07 Triage completed. kl 22:45 No provider procedures requiring assistance completed. Patient did not have IV access kl during this emergency room visit. 23:08 Chest Pa And Lat (2 Views) XRAY In Process Unspecified. EDMS 23:48 Patient has correct armband on for positive identification. Call light in reach. kl 23:49 Arm band placed on. kl Administered Medications: 22:14 Drug: predniSONE PO 60 mg Route: PO; cg 22:38 Follow up: Response: No adverse reaction kl 22:14 Drug: Ipratropium Inhalation Aerosol 0.5 mg Route: Inhalation; cg 22:38 Follow up: Response: No adverse reaction; Marked relief of symptoms kl 22:14 Drug: Albuterol Inhalation 2.5 mg Route: Inhalation; cg 22:38 Follow up: Response: No adverse reaction; Marked relief of symptoms Medication: 23:49 VIS not applicable for this client. kl Outcome: 23:32 Discharge ordered by . kb 23:48 Discharged to home ambulatory. kl 23:48 Condition: improved 23:48 Discharge instructions given to patient, Instructed on discharge instructions, follow up and referral plans. medication usage, Demonstrated understanding of instructions, follow-up care, medications, Prescriptions given X 3. 23:49 Patient left the ED. kl Signatures: Dispatcher [employer] EDMillie Barger, LEE-C LEE-Whitney Galindo RN RN kl Garcia, Cindy, RN RN cg Jeffries, Jennifer jj6
[2023-04-05 00:31] VITALS: TEMP 97
[2023-04-05 00:33] VITALS: O2SAT 99
[2023-04-05 00:35] VITALS: BP 141/89
--- NOTE | 2023-04-07 14:35 | RAD REPORT ---
EXAM DESCRIPTION: XR CHEST 2 VIEWS CLINICAL HISTORY: Male, 42 years old, Cough;Congestion TECHNIQUE: 2 views COMPARISON: None. FINDINGS: Support devices: None. Lungs/pleura: No consolidation, pleural effusion, or pneumothorax. Heart and mediastinum: Cardiomediastinal silhouette has normal size and configuration. Other: No acute osseous findings. IMPRESSION: No acute cardiopulmonary findings. Electronically signed by: Naren He MD 04/04/2023 11:28 PM CDT Due to temporary technical issues with the PACS/Fluency reporting system, reports are being signed by the in house radiologist without review as a courtesy to ensure prompt reporting. The interpreting r adiologist is fully responsible for the content of the report.
== END 2023-04-04 23:49 | disposition home or self-care (01) ==
LOC: ER 21:49
DX: J20.9 Acute bronchitis, unspecified (principal); Z88.5 Allergy status to narcotic agent
CPT/HCPCS: 71046; 99284; J7512; J7613; J7644